=== PATIENT | female | born 1950 | race Caucasian/White ===

== ENCOUNTER 2017-12-27 12:53 | Outpatient (CLI) | payer OTHER | END 2017-12-27 13:26 | disposition home or self-care (01) | LOC: RAD 12:53 | DX: S93.402A Sprain of unspecified ligament of left ankle, initial encounter (principal) ==

== ENCOUNTER 2019-03-26 11:48 | Outpatient (CLI) | payer OTHER | END 2019-03-26 11:57 | disposition home or self-care (01) | LOC: RAD 11:48 | DX: M25.561 Pain in right knee (principal); M25.562 Pain in left knee ==

== ENCOUNTER 2021-03-22 10:18 | Outpatient (CLI) | payer OTHER | END 2021-03-22 10:19 | disposition home or self-care (01) | LOC: NUCLEAR 10:18 | PROVIDERS: ATTEND Family Medicine | DX: M79.605 Pain in left leg (principal) ==